=== PATIENT | female | born 1985 | race American Indian/Alaskan Native ===

== ENCOUNTER → 2022-07-20 08:31 | Outpatient (BNVA) | payer OTHER, SELFPAY | PROVIDERS: Family Provider Nurse Practitioner; PCP Nurse Practitioner; Visit Provider Nurse Practitioner | DX: F41.8 Other specified anxiety disorders (principal); E03.8 Other specified hypothyroidism | CPT/HCPCS: 80053; 80061; 84439; 84443; 84481 ==

== ENCOUNTER → 2023-02-14 10:52 | Outpatient (BNVA) | payer OTHER, SELFPAY | PROVIDERS: Family Provider Nurse Practitioner; PCP Nurse Practitioner; Visit Provider Nurse Practitioner | DX: E03.8 Other specified hypothyroidism (principal) | CPT/HCPCS: 80053; 84443 ==

== ENCOUNTER → 2023-05-23 10:45 | Outpatient (BNVA) | payer OTHER, SELFPAY | PROVIDERS: Family Provider Nurse Practitioner; PCP Nurse Practitioner; Visit Provider Nurse Practitioner | DX: E03.8 Other specified hypothyroidism (principal) | CPT/HCPCS: 84443 ==

== ENCOUNTER → 2023-09-30 11:53 | Outpatient (BNVA) | payer OTHER, SELFPAY | PROVIDERS: Family Provider Nurse Practitioner; PCP Nurse Practitioner; Visit Provider Nurse Practitioner | DX: M54.50 Low back pain, unspecified (principal); E03.8 Other specified hypothyroidism | CPT/HCPCS: 80053; 81000; 84443 ==

== ENCOUNTER → 2024-03-16 15:52 | Outpatient (BNVA) | payer BC, SELFPAY | PROVIDERS: Family Provider Nurse Practitioner; PCP Nurse Practitioner; Visit Provider Nurse Practitioner | DX: F41.8 Other specified anxiety disorders (principal); E03.8 Other specified hypothyroidism; Z13.6 Encounter for screening for cardiovascular disorders; M25.539 Pain in unspecified wrist; G89.29 Other chronic pain; G56.00 Carpal tunnel syndrome, unspecified upper limb | CPT/HCPCS: 80053; 80061; 82607; 83550; 84443; 85025 ==

== ENCOUNTER → 2024-05-11 15:40 | Outpatient (BNVA) | payer BC, SELFPAY | PROVIDERS: Family Provider Nurse Practitioner; PCP Nurse Practitioner; Referring Provider Nurse Practitioner; Visit Provider Specialist | DX: M79.642 Pain in left hand (principal); G56.03 Carpal tunnel syndrome, bilateral upper limbs | CPT/HCPCS: 73130 ==

== ENCOUNTER → 2024-06-29 13:47 | Outpatient (BNVA) | payer BC, MEDICAID, SELFPAY | PROVIDERS: Family Provider Nurse Practitioner; PCP Nurse Practitioner; Visit Provider Nurse Practitioner | DX: E61.1 Iron deficiency (principal); F41.8 Other specified anxiety disorders; B36.9 Superficial mycosis, unspecified | CPT/HCPCS: 80053; 83540 ==

== ENCOUNTER → 2024-08-31 16:14 | Outpatient (BNVA) | payer BC, MEDICAID, SELFPAY | PROVIDERS: Family Provider Nurse Practitioner; PCP Nurse Practitioner; Visit Provider Nurse Practitioner | DX: E03.8 Other specified hypothyroidism (principal); E61.1 Iron deficiency | CPT/HCPCS: 80053; 83540; 84443; 85025 ==

== ENCOUNTER 2024-10-27 16:24 | Outpatient (CLI) | payer BC, MEDICAID, SELFPAY ==
[2024-10-27 16:54] LABS: Basophils % 0.5 %; Eosinophils # 0.2 10^3/uL (0.0-0.8); Eosinophils % 3.5 %; Hematocrit 38.3 % (36-47); Lymphocytes # 2.2 10^3/uL (0.8-4.8); Lymphocytes % 38.1 %; Mean Corpuscular HGB Conc 32.4 g/dL (30-55); Mean Corpuscular Hemoglobin 26.8 pg (27-33); Mean Corpuscular Volume 82.9 fl (85-98); Monocytes # 0.4 10^3/uL (0.2-0.9); Monocytes % 7.6 %; Neutrophils # 2.82 10^3/uL (1.8-7.7); Neutrophils % 49.9 %; Nucleated Red Blood Cells % 0 %; Platelet Count 239 10^3/cmm (157-399); Red Blood Count 4.62 10^6/uL (3.85-5.65); White Blood Count 5.65 10^3/uL (3.29-11.43)
[2024-10-27 16:58] LABS: Bilirubin Urine Negative (Negative); Blood Urine 1+ (Negative); Glucose Urine UA Negative (Normal); Ketones Urine Negative (Negative); Leukocyte Esterase Urine Negative (Negative); Nitrate Urine Negative (Negative); Protein Urine Negative (Negative); Specific Gravity, Urine 1.007 (1.005-1.030); Urine Appearance Clear (CLEAR); Urine Color Yellow (Yellow); Urobilinogen Urine 0.2 mg/dL (Negative); pH Urine 5.5 (5-7)
[2024-10-27 17:00] LABS: Add Urine Microscopic? YES; Bacteria Urine Trace /hpf; RBC Urine 0-2 /hpf (0-2); Squamous Epithelial Cell Urine 0-5 /hpf (0-5); WBC Urine 0-5 /hpf (0-5)
[2024-10-27 17:14] LABS: Alanine Aminotransferase 18 U/L (0-33); Albumin Level 4.5 g/dL (3.5-5.2); Alkaline Phosphatase 91 U/L (35-105); Anion Gap 14.9 (5-19); Aspartate Amino Transferase 16 U/L (0-32); Blood Urea Nitrogen 6 mg/dL (6-20); Calcium 9.4 mg/dL (8.5-10.5); Carbon Dioxide 27 mmol/L (22-29); Chloride 101 mmol/L (98-107); Globulin 2.3 g/dL (1.3-4.6); Glomerular Filtration Rate 92.7 mL/min (90-130); Glucose 100 mg/dL (65-115); Osmolality Calculated 286 mOsm/kg (285-295); Potassium 3.9 mmol/L (3.5-5.1); Sodium 139 mmol/L (136-145); Total Bilirubin 0.2 mg/dL (0.15-1.2); Total Protein 6.8 g/dL (6.6-8.7)
== END 2024-10-27 16:25 | disposition home or self-care (01) ==
LOC: LAB 16:25
PROVIDERS: Family Provider Nurse Practitioner; PCP Nurse Practitioner; Visit Provider Specialist
DX: Z01.818 Encounter for other preprocedural examination (principal)
CPT/HCPCS: 36415; 80053; 81001; 85025

== ENCOUNTER 2024-11-19 13:07 | Day surgery (SDC) | payer BC, MEDICAID, SELFPAY ==
--- OUTSIDE RECORDS SUMMARY | 2024-10-09 10:02 | XMS_ITS | Continuity of Care Document ---
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 Problem Focu sed Intraoral ??? Periapical First Film Limited Oral Evaluation ??? Problem Focu sed Extraction, Erupted Tooth Or Exposed Shanice t (Elevati Pre-Pay For Services Limited oral eval, x-ray & 1st extractio n Advance Directives Directive Yes / No Effective Date File Name No Information Encounters Encounter Description Practice Location Reason(s) For Visit Diagnoses Date Provider Providers Copied on Encounter [facility], [id number], [id number], [place] tel:[phone] [facility] Encounter for dental exam and cleaning w/o abnormal findings Leon Escalante. [address], [place], [id number], [place]. tel:[phone] Referring Provider: Boris Quintero, [address] [place], [address]. tel:[phone] [facility], [id number], [id number], [place] tel:[phone] [facility] Encounter for dental exam and cleaning w/o abnormal findings Leon Escalante. [address], [place], [id number], [place]. tel:[phone] Referring Provider: Boris Quintero, [address] [place], [address]. tel:[phone] [facility], [id number], [id number], [place] tel:[phone] [facility] Encounter for dental exam and cleaning w/o abnormal findings Fili Mccallum. [address] [place], [address], [place]. tel:[phone] Referring Provider: Alessio Penn, [address] [place], [address]. tel:[phone] Family History Family Member Type Diagnosis Age At Onset No Information Payers Payer name Insurance type Covered constitution party ID Birgit partida(s) [id number] Social History Type Description Quantity Date Captured Comments Alcohol Use Details Caffeine Use Details Unknown Tobacco Use Status No Information Smoking Status No Information Sex Female Sexual Orientation Heterosexual Gender Identity Female Chief Complaint And Reason For Visit No Information Reason For Referral Reason For Referral No Information History Of Present Illness Encounter Date Complaint History Of Prese nt Illness No Information Functional Status Date Functional Assessmen t No Information Instructions Date Instruction Additional Infor mation No Information Assessments Type Assessment Date No Information Patient Care Teams Name Effective Dates (start - stop) Status Members No Information
[2024-11-19] VITALS (10 sets, daily range): BP systolic 108–129; BP diastolic 65–85; PULSE 68–90; RESP 14–18; TEMP 36.1–36.6; O2SAT 96–100; BMI 22.3
[2024-11-19 13:42] LABS: OR HCG Qualitative Urine Negative (Negative)
--- NOTE | 2024-11-19 14:00 | W.PM.OPSUD ---
Surgery/Procedure H&P Update DATE OF PROCEDURE: November 19, 2024 DATE H&P PERFORMED: 11/05/24 H&P UPDATE INFORMATION: I have reviewed H&P completed within last 30 days, I have examined patient prior to procedure, No changes to prior documentation and [place] [facility] [place] date indicated CHANGES TO PREVIOUS DOCUMENTATION: Right carpal tunnel syndrome PRIMARY INDICATION FOR PROCEDURE: Right carpal tunnel syndrome PLANNED PROCEDURE: Operation Date: 11/19/24 14:40 Proposed Procedures p Carpal Tunnel Release(Right) - Lupe Rolle MD Related Problem List Diagnoses (1) Carpal tunnel syndrome on right:
[2024-11-19] MEDS: CELEcoxib 200 mg Capsule 400 MG PO (14:08)
[2024-11-19] MEDS: acetaminophen 1,000 MG/100 ML PIGGYBACK 400 MG IV (14:09)
[2024-11-19] MEDS: sodium chloride 0.9% 1,000 ML 30 ML IV (14:09)
[2024-11-19] MEDS: gabapentin 300 mg Capsule PO (14:09)
[2024-11-19] MEDS: ceFAZolin 2,000 mg SDV 2000 MG IVP (14:56)
[2024-11-19] MEDS: BUPivacaine 0.5% INJ 30 mL XX (15:18)
--- NOTE | 2024-11-19 16:00 | P.OP_ITS ---
Operative Report Date of procedure: November 19, 2024 Pre-op diagnosis: Right carpal tunnel syndrome Post-op diagnosis: Right carpal tunnel syndrome Post-op findings: Tight carpal canal with purplish discoloration of the median nerve and compression Procedure done: Right carpal tunnel release Implants: None Specimens removed/disposition: None Pathology: None Surgeon: Lupe Rolle MD Hypoid Gear Generator: None Anesthesia: General (Per LMA, ASA 2) Estimated blood loss (mL): 2 Tourniquet time (min): 7 (At 250 mmHg) IV fluids (mL): 500 Urine output (mL): 0 (No Felix) Complications: None Findings: Findings consistent with carpal tunnel syndrome Condition: stable Disposition: PACU (Then return to same-day surgery for discharge to home) Brief History: This 39-year-old woman initially presented with complaints of right hand pain. Nerve conduction study in September of this year was interpreted as consistent with right carpal tunnel syndrome. The patient wished to proceed with operative intervention in the form of carpal tunnel release. Risks and complications were discussed with her. Consents were signed and questions were answered. She was scheduled for the above procedure. Procedure: The patient was brought to the operating theater. The patient had a general anesthesia per LMA, ASA 2. The tourniquet was elevated to 250 mmHg for a total tourniquet time of 7 minutes. The patient was also given Ancef 2 g preoperatively. The arm was then prepped and draped with DuraPrep in usual fashion with the arm draped free. A surgical pause was performed. At the time, the surgical pause, we confirmed the site and side of surgery. We also confirmed the patient's identity, appropriate and timely administration of preoperative antibiotics and preoperative surgical markings. An incision was then made along the thenar crease. The incision crossed the wrist joint in a curvilinear fashion. Dissection continued through skin and soft tissues using a scalpel. The palmaris longus was identified along with the transverse carpal ligament. Each of these was released carefully to avoid injury to the median nerve. We were able to dissect gently into the carpal canal which was noted to be quite tight with significant compression across the median nerve. The nerve was visualized and was an hourglass shape. The canal was huang bsequently palpated to assure there was no bony encroachment upon the canal. There was a quite thickened fibrous tissue within the canal, and this was opened longitudinally as well. The canal was then palpated distally and proximally to assure that my small finger was passed easily without impingement. Finding this to be so, attention was directed to closure. The wound was irrigated with ropivacaine plain. It was then closed with 3-0 nylon in an interrupted mattress fashion. Sterile dressing was then placed consisting of Dermabond, OpSite, fluffed fluffs, sterile soft roll, and an Hilario wrap. The tourniquet was released after 7 minutes. There were no complications. There were no specimens. The procedure was well tolerated. Plan is the patient will be discharged home. Related Problem List Diagnoses (1) Carpal tunnel syndrome on right:
--- NOTE | 2024-11-19 16:20 | SUR.PHASEII ---
ROM SENSATION AND CAP REFILL OF FINGERS OF RIGHT HAND..HAND ELEVATED ON PILLOW.
== END 2024-11-19 17:30 | disposition home or self-care (01) ==
PROVIDERS: Anesthesiology; Family Provider Nurse Practitioner; PCP Nurse Practitioner; Visit Provider Specialist
PROC: (CPT 64721; principal; 2024-11-19 14:30)
DX: G56.01 Carpal tunnel syndrome, right upper limb (principal)
CPT/HCPCS: 64721; 81025; J0131; J0690; J1100; J2250; J2405; J2704; J3010; J3490; J7030

== ENCOUNTER → 2025-04-09 09:22 | Outpatient (BNVA) | payer BC, MEDICAID, SELFPAY | PROVIDERS: Family Provider Nurse Practitioner; PCP Nurse Practitioner; Visit Provider Nurse Practitioner | DX: E61.1 Iron deficiency (principal); E03.8 Other specified hypothyroidism | CPT/HCPCS: 80053; 83540; 84443 ==

== ENCOUNTER → 2025-05-12 11:00 | Outpatient (BNVA) | payer BC, MEDICAID, SELFPAY | PROVIDERS: Family Provider Nurse Practitioner; PCP Nurse Practitioner; Visit Provider Nurse Practitioner | DX: Z12.4 Encounter for screening for malignant neoplasm of cervix (principal) | CPT/HCPCS: 88175 ==

== ENCOUNTER 2025-06-02 08:58 | Outpatient (CLI) | payer BC, MEDICAID, SELFPAY ==
--- NOTE | 2025-06-02 09:05 | XRR_ITS ---
PROCEDURE INFORMATION: Exam: XR Sinus Exam date and time: 06/02/2025 9:11 AM Age: 39 years old Clinical indication: Coughing, SOB & sinus pressure x 3 months. PT states coughing fits are so intense that she throws up & her contacts fall out of her eyes. ; Additional info: R05.9 - cough, unspecified TECHNIQUE: Imaging protocol: XR of the sinuses and paranasal structures. Views: Minimum of 3 views. COMPARISON: No relevant prior studies available. FINDINGS: Paranasal sinuses: Well aerated. Bones/joints: No fracture. Soft tissues: Unremarkable. XR/XR sinus min 3V* [id number] IMPRESSION: Unremarkable.
--- NOTE | 2025-06-02 09:05 | XRR_ITS ---
PROCEDURE INFORMATION: Exam: XR Chest Exam date and time: 06/02/2025 9:11 AM Age: 39 years old Clinical indication: Coughing, SOB & sinus pressure x 3 months. PT states coughing fits are so intense that she throws up & her contacts fall out of her eyes. ; Additional info: R05.9 - cough, unspecified TECHNIQUE: Imaging protocol: Radiologic exam of the chest. Views: 2 views. COMPARISON: No relevant prior studies available. FINDINGS: Lungs: The pulmonary vessels are within normal limits. There is a left midlung frias 6 mm nodule. Right lung is clear. Pleural spaces: No pneumothorax. Heart/Mediastinum: The cardiomediastinal silhouette is within normal limits. Bones/joints: Osseous structure is unremarkable. XR/XR chest 2V* [id number] IMPRESSION: 1. No acute pulmonary finding. 2. Left midlung frias 6 mm nodule. Imaging follow-up for stability is advised.
[2025-06-02 09:37] LABS: Hematocrit 40.6 % (36-47); Hemoglobin 12.60 g/dL (11.27-16.99); Mean Corpuscular HGB Conc 31.0 g/dL (30-55); Mean Corpuscular Hemoglobin 26.0 pg (27-33); Mean Corpuscular Volume 83.9 fl (85-98); Nucleated Red Blood Cells % 0 %; Platelet Count 243 10^3/cmm (157-399); Red Blood Count 4.84 10^6/uL (3.85-5.65); White Blood Count 8.10 10^3/uL (3.29-11.43)
[2025-06-02 10:03] LABS: Anion Gap 15.3 (5-19); Blood Urea Nitrogen 10 mg/dL (6-20); Calcium 9.6 mg/dL (8.5-10.5); Carbon Dioxide 25 mmol/L (22-29); Chloride 104 mmol/L (98-107); Glucose 95 mg/dL (65-115); Osmolality Calculated 289 mOsm/kg (285-295); Potassium 4.3 mmol/L (3.5-5.1); Sodium 140 mmol/L (136-145); Thyroid Stimulating Hormone 4.72 uIU/mL (0.27-4.20)
== END 2025-06-02 08:59 | disposition home or self-care (01) ==
PROVIDERS: PCP Nurse Practitioner; Visit Provider Nurse Practitioner
DX: R91.1 Solitary pulmonary nodule (principal); R05.9 Cough, unspecified; J32.9 Chronic sinusitis, unspecified; E03.8 Other specified hypothyroidism
CPT/HCPCS: 70220; 71046; 80048; 84443; 85025

== ENCOUNTER 2025-09-15 12:06 | Outpatient (CLI) | payer BC, MEDICAID, SELFPAY ==
--- NOTE | 2025-09-15 12:00 | CT_ITS ---
WS: [id number] CT chest wo con [id number] HISTORY: R91.1 - Solitary pulmonary nodule TECHNIQUE: Axial imaging performed through the thorax. Coronal and sagittal reformats are submitted. All CT scans at [facility] use at least one of these dose optimization techniques: automated exposure control; mA and/or kV adjustment per patient size (includes targeted exams where dose is matched to clinical indication); or iterative reconstruction. CONTRAST: None DLP: 221.54 mGy.cm COMPARISON: Chest radiograph 06/02/2025 Lungs and central airway: Lungs are well aerated. Subpleural 3.6 mm nodule in the RIGHT upper lobe. No pneumonia. No endobronchial lesion. Pleura: Normal. No pleural effusion. Heart and pericardium: Normal size heart with no pericardial effusion. Mediastinum and paco: No mediastinum or hilar adenopathy. Vessels: Minimal atherosclerosis in the aortic arch. Normal size aorta and pulmonary artery. Chest wall and lower neck: No soft tissue masses. Upper abdomen: Normal. Osseous structures: Small sclerotic focus in the anterior LEFT fourth rib is most consistent with a bone island. There is no bone destruction or cortical thinning. This corresponds to the nodule that was described on a recent chest radiograph. CT/CT chest wo con [id number] IMPRESSION: 1. Indeterminate solid RIGHT upper lobe pulmonary nodule measuring 3.6 mm. In a low-risk patient with a solid nodule <6 mm, recommend no follow-up. In a high -risk patient, CT at 12 months is optional with stronger consideration if there is suspicious nodule morphology and/or upper lobe location. 2. The nodule described on recent chest radiograph is a bone island in the ante rior LEFT fourth rib.
== END 2025-09-15 12:07 | disposition home or self-care (01) ==
PROVIDERS: PCP Nurse Practitioner; Visit Provider Nurse Practitioner
DX: R91.1 Solitary pulmonary nodule (principal); M89.8X8 Other specified disorders of bone, other site
CPT/HCPCS: 71250

== ENCOUNTER → 2025-11-16 16:34 | Outpatient (BNVA) | payer BC, MEDICAID, SELFPAY | PROVIDERS: PCP Nurse Practitioner; Visit Provider Nurse Practitioner | DX: E03.8 Other specified hypothyroidism (principal) | CPT/HCPCS: 80053; 84443 ==